=== PATIENT | female | born 1985 | race African-American/Black ===

== ENCOUNTER 2018-03-26 22:30 | Emergency (ER) | payer MEDICAID, OTHER ==
[~2018-03-26] VITALS: Ht 167.6 cm; Wt 70.3 kg
[~2018-03-26 22:30] MED LIST: ALBUTEROL SULF8.5 GM INH; ATIVAN2 MG ORAL; NAPROXEN500 M2 ORAL; NORCO 5-325 TA1 EACH ORAL; PRENAPLUS TABL1 EACH PO; PROMETHAZINE-D118 ML ORAL; UNOBMED; XANAX2 MG ORAL
[2018-03-26 22:45] VITALS: BP 137/81
--- NOTE | 2018-03-26 23:26 | Emergency Room Report ---
History of Present Illness General Chief Complaint: Abdominal Pain Source: Patient Present Illness HPI Is a 32-year-old female with no significant past medical history. She presents with chief complaint of pelvic pain and discharge. She had a new sexual partner and has increasing intercourse. Now with pelvic pain started tonight and discharged increasing. She has been douching. Sexual intercourse is unprotected. No fever chills. Worse with urination. No nausea no vomiting. Pain is 7 out of 10. Discharge is whitish and yellowish in nature. Allergies: Coded Allergies: PENICILLINS (Unverified Allergy, Unknown, 06/18/14) SWELLING Patient History Past Medical History: see triage record, old chart reviewed Past Surgical History: other Pertinent Family History: none Social History: Denies: smoking Last Menstrual Period: 03/01/2018 Now: Yes : 3 Para: 3 Immunizations: other Reviewed Nursing Documentation: PMH: Agreed; PSxH: Agreed Nursing Documentation-PMH Past Medical History: No History, Except For Hx Asthma: Yes Hx Neurological Problems: Yes - anxiety scoliossis Review of Systems Eye: Denies: eye pain, blurred vision ENT: Denies: ear pain, nose congestion, throat swelling Respiratory: Denies: cough, shortness of breath Cardiovascular: Denies: chest pain, palpitations Gastrointestinal: Denies: abdominal pain, diarrhea, nausea, vomiting Genitourinary: Reports: discharge Musculoskeletal: Denies: back pain, joint pain Skin: Denies: rash Neurological: Denies: headache, numbness Endocrine: Denies: increased thirst, increased urine Hematologic/Lymphatic: Denies: easy bruising All Other Systems: negative except mentioned in HPI Physical Exam Vital Signs Date Time Temp Pulse Resp B/P (MAP) Pulse Ox O2 Delivery O2 Flow Rate FiO2 03/26/18 22:42 97.7 83 16 137/81 97 Room Air 97.7 vitals normal Sp02 EP Interpretation: reviewed, normal General Appearance: well appearing, no apparent distress, alert Head: normocephalic, atraumatic Eyes: bilateral eye PERRL, bilateral eye EOMI ENT: hearing grossly normal, normal pharynx Neck: full range of motion, supple, no meningismus Respiratory: chest non-tender, lungs clear, normal breath sounds Cardiovascular #1: regular rate, rhythm, no murmur Gastrointestinal: normal bowel sounds, non tender, no mass, no organomegaly, no bruit, non-distended Genitourinary: other - pelvic exam done with female RN as military technology specialist. External exam normal. Internal exam show copious thick yellowish/whitish discharge. No cervical motion tenderness. No adnexal tenderness. Musculoskeletal: back normal, gait/station normal, normal range of motion Neurologic: alert, oriented x3 Psychiatric: mood/affect normal Skin: warm/dry Medical Decision Making Diagnostic Impression: Primary Impression: Acute cervicitis ER Course She with a vaginal discharge and pelvic pain. We'll treat for cervicitis with azithromycin and Rocephin. Recommend outpatient testing for other STDs. Last Vital Signs Date Time Temp Pulse Resp B/P (MAP) Pulse Ox O2 Delivery O2 Flow Rate FiO2 03/26/18 22:45 97.7 78 16 137/81 97 Room Air 97.7 Status: improved Disposition: HOME, SELF-CARE Condition: Stable Additional Instructions: Follow-up your doctor in 7 days. Recommend outpatient testing for HIV, hepatitis, syphilis, and other STDs. This can be done anonymously. Return if symptom worsen. ROSANNE PISANO M.D. Mar 26, 2018 23:26
[2018-03-26 23:30] LABS: APPEARANCE,URINE CLEAR; BILIRUBIN, URINE NEGATIVE (NEGATIVE); COLOR,URINE PALE YELLOW; GLUCOSE, URINE (UA) NEGATIVE (NEGATIVE); KETONES,URINE NEGATIVE (NEGATIVE); LEUKOCYTE ESTERASE ,URINE 1+ (NEGATIVE); NITRITE,URINE NEGATIVE (NEGATIVE); PH,URINE 6 (4.5-8.0); PROTEIN,URINE 1+ (NEGATIVE); UROBILINOGEN,URINE NORMAL MG/DL (0.0-1.0)
[2018-03-26] MEDS ORDERED: Azithromycin 250mg tab ORAL ONE (23:45)
[2018-03-26] MEDS ORDERED: Lidocaine 1% MPF 10mg/ml 5ml INJ ONE (23:45)
[2018-03-27 00:01] VITALS: BP 129/70
[2018-03-27 00:03] VITALS: BP 129/70
== END 2018-03-27 00:03 | disposition home or self-care (01) ==
LOC: EMR 23:26
DX: N72 Inflammatory disease of cervix uteri (principal); R10.2 Pelvic and perineal pain; Z88.0 Allergy status to penicillin
CPT/HCPCS: 81003; 81025; 87210; 87491; 87590; 96372; 99284; J0696; Q0144

== ENCOUNTER 2018-10-10 19:09 | Emergency (ER) | payer MEDICAID ==
[~2018-10-10] VITALS: Ht 165.1 cm; Wt 83.9 kg
[2018-10-10] MEDS ORDERED: NKM (19:23)
[2018-10-10 19:40] VITALS: BP 139/90
--- NOTE | 2018-10-10 19:41 | NUR ---
ER Nurse Note: Pt came from home c/o left sided rib pain due to cough since 10/06/18. Pt stated her kids were sick 2 weeks ago and now she has a cough that will not go away. Pt lung sounds clear in all lobes, no signs of acute resp distress. Pt stated she is congested and would like an x-ray. Delfino continue to monitor.
[2018-10-10] MEDS ORDERED: ALBUTEROL SULF8.5 GM INH (19:54)
[2018-10-10] MEDS ORDERED: ROBAXIN-750750 MG PO (19:54)
[2018-10-10] MEDS ORDERED: PROMETHAZINE-D118 ML ORAL (19:54)
[2018-10-10] MEDS ORDERED: PREDNISONE20 MG ORAL (19:54)
[2018-10-10 20:05] VITALS: BP 139/90
--- NOTE | 2018-10-10 20:05 | NUR ---
ER Nurse Note: Pt seen, treated, medially cleared for discharge by ERMD. Discharge instructions and prescriptions given with repeat verbaliazation by pt. Instructed pt to follow up with primary care provider within one week. Pt understood all teaching. Pt a&ox4, VSS, no signs of distress. Pt denies pain. ID band removed. Pt left with all belongings with steady gait via own transportation.
--- NOTE | 2018-10-10 21:06 | Emergency Room Report ---
History of Present Illness General Chief Complaint: Upper Respiratory Illness Source: Patient Present Illness HPI 32-year-old female presents ED for evaluation. Patient complaining of cough and left-sided rib pain for the last 5 days. History of asthma and bronchitis. States cough is dry. States she's been using her inhaler with some relief. States she has pain on the left side, worse with coughing. Denies shortness of breath. Pain is dull, 5 out of 10, nonradiating. Denies sick contacts or recent travel. No other aggravating relieving factors. Denies any other associated symptoms Allergies: Coded Allergies: PENICILLINS (Unverified Allergy, Unknown, 06/18/14) SWELLING Patient History Past Medical History: asthma Past Surgical History: none Pertinent Family History: none Social History: Denies: smoking, alcohol use, drug use Last Menstrual Period: 09/14/18 Now: No Immunizations: UTD Reviewed Nursing Documentation: PMH: Agreed; PSxH: Agreed Nursing Documentation-PMH Past Medical History: No History, Except For Hx Asthma: Yes Hx Neurological Problems: Yes - anxiety scoliossis Review of Systems All Other Systems: negative except mentioned in HPI Physical Exam Vital Signs Date Time Temp Pulse Resp B/P (MAP) Pulse Ox O2 Delivery O2 Flow Rate FiO2 10/10/18 19:17 99.0 88 16 139/90 99 Room Air Sp02 EP Interpretation: reviewed, normal General Appearance: no apparent distress, alert, GCS 15, non-toxic Head: normocephalic Eyes: bilateral eye normal inspection, bilateral eye PERRL ENT: hearing grossly normal, normal pharynx, no angioedema, normal voice Neck: full range of motion, supple/symm/no masses Respiratory: lungs clear, normal breath sounds, speaking full sentences, other - L sided reproducible rib pain Cardiovascular #1: regular rate, rhythm, no edema Gastrointestinal: normal bowel sounds, non tender, soft, non-distended, no guarding, no rebound Rectal: deferred Genitourinary: no CVA tenderness Musculoskeletal: normal inspection Neurologic: alert, oriented x3, responsive, motor strength/tone normal, sensory intact, speech normal Psychiatric: normal inspection Skin: normal inspection Lymphatic: normal inspection Medical Decision Making Diagnostic Impression: Primary Impression: Strain of chest wall Qualified Codes: S29.011A - Strain of muscle and tendon of front wall of thorax, initial encounter Additional Impression: Bronchitis ER Course Hospital Course 32-year-old female presents to ED complaining of cough, L sided chest wall pain Differential diagnoses include: URI, pharyngitis, otitis media, asthma Clinical course Patient placed on stretcher. After initial history, physical exam reveals a female in no acute distress. Bilateral TM unremarkable. No pharyngeal erythema. No tonsillar exudates. No lymphadenopathy. lungs clear. reproducible L sided rib pain. no bruising or crepitus. abdomen soft. Discussed findings with patient. Pain is muscular secondary to persistent coughing. Lungs clear. I see no reason for imaging at this time. Reassurance given. Will discharge with inhaler, prednisone, cough medication, muscle relaxer. Safe for discharge close outpatient follow-up. States she has a PMD Diagnosis - chest wall strain, bronchitis Stable and discharged home. Instructed to followup with PMD. Return to ED if symptoms recur or worsen Last Vital Signs Date Time Temp Pulse Resp B/P (MAP) Pulse Ox O2 Delivery O2 Flow Rate FiO2 10/10/18 20:05 99.0 86 16 139/90 99 Room Air Status: improved Disposition: HOME, SELF-CARE Condition: Stable Scripts Methocarbamol* (ROBAXIN-750*) 750 Mg Tablet 750 MG PO TID, #21 TAB 0 Refills Prov: Simon Abel MD 10/10/18 D-Methorphan Hb/Prometh Hcl* (PROMETHAZINE-DM SYRUP*) 118 Ml Syrup 5 ML ORAL Q6H PRN for For Cough, #118 ML 0 Refills Prov: Simon Abel MD 10/10/18 Prednisone* (PREDNISONE*) 20 Mg Tablet 40 MG ORAL DAILY, #10 TAB Prov: Simon Abel MD 10/10/18 Albuterol Sulfate* (ALBUTEROL SULFATE MDI*) 8.5 Gm Hfa.aer.ad 2 PUFF INH Q6H, #1 EA 0 Refills Prov: Simon Abel MD 10/10/18 Patient Instructions: Chest Wall Pain, [id number], Acute Bronchitis, Easy-to- Read Simon Abel MD Oct 10, 2018 21:06
== END 2018-10-10 20:05 | disposition home or self-care (01) ==
LOC: EMR 19:31
DX: S29.011A Strain of muscle and tendon of front wall of thorax, initial encounter (principal); J20.9 Acute bronchitis, unspecified; Z88.0 Allergy status to penicillin; F41.9 Anxiety disorder, unspecified; M41.9 Scoliosis, unspecified; X58.XXXA Exposure to other specified factors, initial encounter; Y92.9 Unspecified place or not applicable
CPT/HCPCS: 99282